=== PATIENT | male | born 1955 | race Caucasian/White ===

== ENCOUNTER 2022-05-15 07:20 | Day surgery (SDC) | payer OTHER ==
[2022-05-13 15:01] VITALS: BMI 32.3
[2022-05-15] MEDS ORDERED: PROPOFOL 20 ML ONE ×2 (08:50→09:08)
[2022-05-15] MEDS ORDERED: PHENYLEPHRINE-NS 100 MCG/ML 10 ML SYRINGE ONE (09:26)
[2022-05-15] MEDS ORDERED: Metoprolol Tartrate 5 MG/5 ML VIAL ONE (09:36)
== END 2022-05-15 10:18 | disposition home or self-care (01) ==
LOC: CSHSDC 07:20
PROVIDERS: ATTEND Internal Medicine Gastroenterology
PROC: 0DJD8ZZ Inspection of Lower Intestinal Tract, Via Natural or Artificial Opening Endoscopic (ICD-10-PCS; principal; 2022-05-15)
DX: K63.5 Polyp of colon (principal); E11.9 Type 2 diabetes mellitus without complications; I10 Essential (primary) hypertension; E78.5 Hyperlipidemia, unspecified; K21.9 Gastro-esophageal reflux disease without esophagitis
CPT/HCPCS: J2704